=== PATIENT | female | born 1980 | race Caucasian/White ===

== ENCOUNTER 2019-02-21 18:12 | Emergency (ER) | payer OTHER ==
[~2019-02-21] VITALS: Ht 162.6 cm; Wt 110.7 kg
[2019-02-21 18:12] VITALS: BP_SYST 143
--- NOTE | 2019-02-21 18:12 | NUR ---
BROUGHT IN BY [facility], PLACED IN BED #5 AND TRIAGED. REPORT GIVEN TO ONEIL
--- NOTE | 2019-02-21 18:25 | NUR ---
PATIENT CAME IN COMPLAINING OF CHEST PAIN FOR LAST 15 YEARS. PATIENT STATES THIS EPISODE STARTED THIS MORNING. PATIENT COMPLAINING OF 8/10 SHARP, SQUEEZING, PRESSURE RADIATING TO BACK. PATIENT STATES SHE TOOK IBUPROFEN BUT DIDNT HELP. PATIENT COMPLAINING OF NAUSEA AND SOB. PATIENT STATES SHE IS "ALWAYS NASUEA THOUGH." PATIENT IS ALERT AND ORIENTED X4. DAUGHTER AT BEDSIDE.
--- NOTE | 2019-02-21 18:30 | NUR ---
DELIA SNYDER examining patient.
--- NOTE | 2019-02-21 18:44 | NUR ---
LAB AT BEDSIDE COLLECTING BLOOD.
[2019-02-21] MEDS ORDERED: LORazepam 1 MG TABLET PO ONE (18:45)
--- NOTE | 2019-02-21 19:04 | NUR ---
ENDORSED CARE TO [facility].
[2019-02-21 19:32] LABS: BILIRUBIN,URINE NEGATIVE (NEGATIVE); BLOOD, URINE NEGATIVE (NEGATIVE); CLARITY/URINE CLOUDY (CLEAR); COLOR,URINE YELLOW (YELLOW); GLUCOSE,URINE NEGATIVE (NEGATIVE); KETONES,URINE TRACE (NEGATIVE); LEUKOCYTE ESTERASE ,URINE TRACE (NEGATIVE); NITRITE, URINE NEGATIVE (NEGATIVE); PH,URINE 5.5 (5.0-8.0); PROTEIN URINE NEGATIVE (NEGATIVE); UROBILINOGEN,URINE 0.2 (0.2-1.0)
[2019-02-21 19:39] LABS: BACTERIA,URINE FEW /HPF (None Seen); MUCUS,URINE None Seen /LPF (None Seen); RBC,URINE 0-3 /HPF (0-3)
[2019-02-21 19:57] VITALS: BP_SYST 138
--- NOTE | 2019-02-21 19:58 | NUR ---
Patient given written and verbal discharge instructions and verbalizes understanding. ER MD discussed with patient the results and treatment provided. Patient in stable condition. ID arm band removed. Rx of Marcobid, Motrin and Zofran given. Patient educated on pain management and to follow up with PMD. Pain Scale 0. Opportunity for questions provided and answered. Medication side effect fact sheet provided.
[2019-02-21 20:08] LABS: BARBITURATE, URINE NEGATIVE (NEG <=200); BENZODIAZEPINE, URINE NEGATIVE (NEG <=150); CANNABINOID, URINE POSITIVE (NEG <=50); COCAINE, URINE NEGATIVE (NEG <=150); METHAMPHETAMINES SCREEN,URINE NEGATIVE (NEG <=500); OPIATE, URINE NEGATIVE (NEG <=100); PHENCYCLIDINE SCREEN,URINE NEGATIVE (NEG <=25); UR TRICYCLIC ANTIDEPRESSANTS NEGATIVE (NEG <=300); URINE AMPHETAMINE NEGATIVE (NEG <=500); URINE METHADONE NEGATIVE (NEG <=200); URINE OXYCODONE SCREEN NEGATIVE (NEG <=100); URINE PROPOXYPHENE SCREEN NEGATIVE (NEG <=300)
== END 2019-02-21 19:57 | disposition home or self-care (01) ==
LOC: SED 18:12
DX: R07.89 Other chest pain (principal); N39.0 Urinary tract infection, site not specified; F41.9 Anxiety disorder, unspecified; R03.0 Elevated blood-pressure reading, without diagnosis of hypertension; G43.909 Migraine, unspecified, not intractable, without status migrainosus; F32.9 Major depressive disorder, single episode, unspecified; M79.7 Fibromyalgia; Z90.89 Acquired absence of other organs
CPT/HCPCS: 36415; 80307; 81000-TC; 81025; 84484; 87086; 99283